=== PATIENT | female | born 2000 | race Caucasian/White ===

== ENCOUNTER 2022-09-03 18:28 | Emergency (ER) | payer OTHER, SELFPAY ==
[2022-09-03 18:54] VITALS: BP 104/60; PULSE 115; RESP 18; TEMP 37.1; O2SAT 98
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
[2022-09-03] MEDS: ondansetron 2 mg/ML SDV 2 mL 4 MG IVP (21:58)
[2022-09-03 21:59] VITALS: RESP 18
[2022-09-03] MEDS: morphine 4 mg/mL SDV 1 mL IVP (21:59)
[2022-09-03] MEDS: tetanus-dipt-pertussis 0.5 mL SDV IM (21:59)
[2022-09-03] MEDS: ketorolac 30 mg/mL INJ 15 MG IVP (22:52)
[2022-09-03] MEDS: lidocaine-epi 1% 20 mL INJ INJECTION (23:02)
[2022-09-03 23:04] VITALS: BP 111/62; PULSE 80; PULSE 85; RESP 16; RESP 18; O2SAT 96; O2SAT 97
== END 2022-09-03 23:10 | disposition home or self-care (01) ==
PROVIDERS: Emergency Provider Emergency Medicine
DX: S09.8XXA Other specified injuries of head, initial encounter (principal); S41.012A Laceration without foreign body of left shoulder, initial encounter; S00.83XA Contusion of other part of head, initial encounter; S00.81XA Abrasion of other part of head, initial encounter; V86.95XA Unspecified occupant of 3- or 4- wheeled all-terrain vehicle (ATV) injured in nontraffic accident, initial encounter; Z23 Encounter for immunization
CPT/HCPCS: 12001; 70450; 70486; 71045; 72072; 72100; 72125; 73030; 73630; 90471; 90715; 96374; 96375; 99284; J1885; J2270; J2405